=== PATIENT | female | born 1995 | race African-American/Black ===

== ENCOUNTER 2018-04-17 21:20 | Emergency (ER) | payer MEDICAID ==
[~2018-04-17] VITALS: Ht 154.9 cm; Wt 50.0 kg
[2018-04-17] MEDS ORDERED: LORazepam 2 MG/ML VIAL IVP ONE (23:15)
[2018-04-17] MEDS ORDERED: KETAMINE HCL 50 MG/ML 10 ML VIAL IVP ONE (23:15)
[2018-04-17] MEDS ORDERED: SODIUM CHLORIDE 0.9% 1,000 ML IV ONE (23:15)
[2018-04-18 01:30] VITALS: BP 106/66
== END 2018-04-18 02:12 | disposition home or self-care (01) ==
LOC: EMS 21:23
DX: M24.411 Recurrent dislocation, right shoulder (principal); X58.XXXA Exposure to other specified factors, initial encounter; Y93.89 Activity, other specified; Y92.89 Other specified places as the place of occurrence of the external cause; Y99.8 Other external cause status
CPT/HCPCS: 23650; 73030 ×2; 81025; 96374; 96375; 99285; J2060; J3490; J7030